=== PATIENT | female | born 1965 | race Caucasian/White ===

== ENCOUNTER 2018-01-09 16:19 | Emergency (ER) | payer MEDICAID ==
[2018-01-09 16:27] VITALS: BP 156/91
[2018-01-09] MEDS ORDERED: Ketorolac INJ* 60 MG/2 ML VIAL IM ONE (16:42)
[2018-01-09] MEDS ORDERED: Ciproflox/Dexameth OTIC.SUSP* 7.5 ML BTL RIGHT EAR ONE (16:48)
[2018-01-09] MEDS ORDERED: Neomyc/Polym/HC 1% OTIC SUSP* **OTIC LEFT EAR ONE (16:59)
--- NOTE | 2018-01-09 17:07 | UC ---
Raymundo Allen Nikita, scribed for Manuelito Mccord MD on 01/09/18 at 1639 . Ear Complaint HPI - HPI Summary HPI Summary: This patient is a 52 year old F presenting to [facility] with a chief complaint of L ear pain since last couple days. The patient rates the pain 10/10 in severity. Symptoms aggravated by nothing. Symptoms alleviated by nothing. Patient reports decreased hearing today. - History of Current Complaint Chief Complaint: UCEar Stated Complaint: EAR PAIN Time Seen by Provider: 01/09/18 16:35 Hx Obtained From: Patient Onset/Duration: Sudden Onset, Lasting Days - last couple of days, Still Present Severity Initially: Severe Severity Currently: Severe Pain Intensity: 10 Pain Scale Used: 0-10 Numeric Aggravating Factors: Nothing Alleviating Factors: Nothing Associated Signs/Symptoms: Positive: Hearing Loss - Allergies/Home Medications Allergies/Adverse Reactions: Allergies Allergy/AdvReac Type Severity Reaction Status Date / Time No Known Allergies Allergy Verified 01/09/18 16:28 Home Medications: Home Medications NK [No Home Medications Reported] 01/09/18 [History Confirmed 01/09/18] PMH/Surg Hx/FS Hx/Imm Hx Endocrine History: Other Other Endocrine History: No DM Cardiovascular History: Other Other Cardiovascular History: No CAD - Surgical History Surgical History: None - Family History Known Family History: Negative: Cardiac Disease - Social History Alcohol Use: None Substance Use Type: None Smoking Status (MU): Light Every Day Tobacco Smoker Review of Systems Constitutional: Other - denies fever ENT: Ear Ache, Other - decrease hearing All Other Systems Reviewed And Are Negative: Yes Physical Exam - Summary Physical Exam Summary: VITAL SIGNS: Reviewed. GENERAL: ~Patient is a well-developed and nourished FEMALE who is lying comfortable in the stretcher. ~Patient is not in any acute respiratory distress. HEAD AND FACE: Normocephalic EYES: PERRLA, EOMI x 2. EARS: Ear canal swelling with some discharge. Unable to appreciate TM. MOUTH: Oropharynx within normal limits. NECK: Supple, trachea is midline, no adenopathy, no JVD, no carotid bruit. CHEST: Symmetric, no tenderness at palpation LUNGS: Clear to auscultation bilaterally. No wheezing or crackles. CVS: Regular rate and rhythm, S1 and S2 present, no murmurs or gallops appreciated. ABDOMEN: Soft, non-tender. Bowel sounds are normal. No abdominal abnormal pulsations. EXTREMITIES: Full ROM in all major joints, no edema, no cyanosis or clubbing. NEURO: Alert and oriented x 3. No acute neurological deficits. Speech is normal and follows commands. SKIN: Dry and warm Triage Information Reviewed: Yes Vital Signs: Initial Vital Signs Temp 96.3 F 01/09/18 16:25 Pulse 18 01/09/18 16:25 Resp 12 01/09/18 16:25 BP 156/91 01/09/18 16:25 Pulse Ox 98 01/09/18 16:25 Vital Signs Reviewed: Yes Ear Complaint Course/Dx - Course Course Of Treatment: This patient is a 52 year old F presenting to [facility] with a chief complaint of L ear pain since last couple days. She will placed with a wick, given Cortisporin otic and Toradol and d/c home with follow up with her PCP. She was instructed to go to an ENT if sx get worse. The pt is hemodynamically stable, alert and oriented x3. The patient was found to have increased BP in UC. The patient will follow up with PCP for better control of BP. Patient was instructed to return to the urgent care or go to ER immediately if any of the symptoms return or worsens. Plan of care was discussed with the patient, and patient understands and agrees. All questions were answered to patient satisfaction. There were no further complaints or concerns. - Differential Dx/Diagnosis Differential Diagnosis/HQI/PQRI: Otitis Externa Provider Diagnoses: otitis externa Discharge - Sign-Out/Discharge Documenting (check all that apply): Discharge/Admit/Transfer - Discharge Plan Condition: Stable Disposition: HOME Patient Education Materials: Otitis Externa (ED) Referrals: Inocencio Dent MD [Primary Care Provider] - 3 Days Gómez Valerio MD [Medical Doctor] - Additional Instructions: FOLLOW UP WITH YOUR PRIMARY CARE PROVIDER WITHIN ONE WEEK FOR HIGH BLOOD PRESSURE NOTED TODAY. RETURN TO URGENT CARE OR THE ED FOR ANY WORSENING OR NEW SYMPTOMS. - Billing Disposition and Condition Condition: STABLE Disposition: HOME The documentation as recorded by the Raymundo cifuentes Nikita accurately reflects the service I personally performed and the decisions made by , Manuelito Mccord MD.
[2018-01-09] MEDS ORDERED: Ciproflox/Dexameth OTIC.SUSP* 7.5 ML BTL LEFT EAR SCH (21:00)
== END 2018-01-09 17:07 | disposition home or self-care (01) ==
LOC: UCEAST 16:19
DX: H60.92 Unspecified otitis externa, left ear (principal); F17.203 Nicotine dependence unspecified, with withdrawal
CPT/HCPCS: 96372; 99202; A9270-GY; G0463; J1885